=== PATIENT | male | born 1960 | race Caucasian/White ===

== ENCOUNTER 2024-07-24 08:34 | Emergency (ER) | payer OTHER, SELFPAY ==
[2024-07-24 08:36] VITALS: BP 130/87
--- NOTE | 2024-07-24 09:20 | ED.GENMED ---
History of Present Illness
General
Chief Complaint: Abdominal Symptoms
Time Seen by Provider: 07/24/24 09:20
History of Present Illness
History of Present Illness:
TIME OF INITIAL ENCOUNTER: 9:25 AM
HPI: The patient presents with about 6 weeks of diarrhea. However more recently has been having left-sided pain/he also some pain in the left side of the low back. His primary placed him on Keflex and Flagyl. His diarrhea has persisted. He has
not had any stool testing. Most recently he has noted a small amount of bright red blood on top of stool.
EXAM:
GENERAL: Well appearing in no distress, elevated BMI
HEENT: Moist oral mucosa
CARDIOVASCULAR: No murmurs, normal heart rate, regular rhythm, No chest wall tenderness
PULMONARY: No respiratory distress, breath sounds are clear and equal
ABDOMEN: Soft with no peritoneal signs, mild left lower quadrant tenderness
NEUROLOGIC: Excellent strength all extremities, no coordination deficits, prominent stutter
PSYCHIATRIC: Appropriate mental status, normal insight and judgement
EXTREMITIES: Nontender, no edema, moves all extremities equally
SKIN: No rash, no lesions
NUMBER AND COMPLEXITY OF PROBLEMS ADDRESSED AT THE ENCOUNTER
� Chronic conditions affecting care: ADHD, anxiety/depression, cholecystectomy
� Acute Exacerbation and/or Progression of Chronic Illness: This is a subacute problem
� Differential Diagnosis includes: C. difficile, colitis, diverticulitis, diverticular disease, medication induced
AMOUNT AND/OR COMPLEXITY OF DATA TO BE REVIEWED AND ANALYZED
� I performed an independent evaluation of and my interpretation is:
EKG:
CT: CT imaging relatively unremarkable
X-rays:
Laboratory Studies: White count 6.9, hemoglobin 14.5, bicarb is slightly low at 20
Other:
� Review of other/old records: Was seen here with right-sided abdominal pain in September of this year and at that time, noncontrast CT was unremarkable relatively
� Clinical information was obtained by an independent historian: None needed but I did speak to the prior to discharge
� Prescriptions/Medications Considered but not given:
� Further testing considered but not performed:
RISK OF COMPLICATIONS AND/OR MORBIDITY OR MORTALITY OF PATIENT MANAGEMENT
� Social determinants of health affecting care: Lives at home
� Discussion with other providers: Radiologist notified me at 12:57 PM indicating that there is no acute bowel pathology other than some diarrhea noted in the cecum
� Escalation of care including admission/observation vs risk of discharge considered: Given ongoing pain will obtain CT imaging. He has been on antibiotics. Diarrhea started even before starting antibiotics. Will also give IV
fluids to ensure that he is well-hydrated. C. difficile testing is negative. He was given a dose of Toradol.
ANY OTHER UPDATES:
1 PM: I reassessed the patient. Bicarb slightly low and was given a liter of IV fluid but overall appears fairly well-hydrated. The patient appears comfortable on reassessment.
Phy Exam
Physical Exam
Physical Exam:
See HPI
Course
Orders/Labs/Results
Orders:
Orders
07/24/24 09:25
0.9% Sodium Chloride 1000 ml [Nss] 1,000 ml IV BOLUS
07/24/24 09:26
CT Abd/pelvis W Iv Cont Urgent
Comment:
Reason For Exam: L pain; diarrhea
07/24/24 09:33
Complete Blood Count/With Diff Urgent
STOOL [C difficile Antigen & Toxins] Urgent
SINA Source: Feces/Stool
Specimen Description:
Date Specimen was Collected: 07/24/24
Time Specimen was Collected: 09:28
Stool Culture Urgent
SINA Source: Feces/Stool
Specimen Description:
Date Specimen was Collected: 07/24/24
Time Specimen was Collected: :
07/24/24 10:49
Ketorolac [Toradol] 15 mg IV NOW STA
07/24/24 11:09
Basic Metabolic Panel Urgent
Lipase Urgent
Abnormal Lab Results
07/24/24 07/24/24
09:33 11:09
RBC 4.68 L 10^6/uL
(4.70-6.10)
Absolute Monos (auto) 0.7 H 10^3/uL
(0.1-0.6)
Monocytes % 9.8 H %
(1.7-9.3)
Chloride 108 H mmol/L
(98-107)
Carbon Dioxide 20 L mmol/L
(22-30)
07/24/24 09:33
07/24/24 11:09
Vital Signs
Initial and Last Documented VS:
Initial Vital Signs
Temp Pulse Resp BP Pulse Ox
36.7 C 55 16 130/87 98
07/24/24 08:36 07/24/24 08:36 07/24/24 08:36 07/24/24 08:36 07/24/24 08:36
Last Documented Vital Signs
Temp Pulse Resp BP Pulse Ox
36.9 C 82 20 133/79 96
07/24/24 09:40 07/24/24 09:40 07/24/24 09:40 07/24/24 09:40 07/24/24 09:40
*Critical Care Note
Total Time (30-74mins, 75-104mins- exclusive of procedures): Not Applicable
ED Attending Note
-
Portions of this chart may have been created with voice recognition software.� Occasional wrong word or��sound alike� substitutions may have occurred due to the inherent limitations of voice recognition software.
Discharge Plan
Departure
Patient Disposition: Home (Routine Discharge)
Date of Disposition: 07/24/24
Time of Disposition: 13:08
Patient with high blood pressure during this ER visit?: Yes
Discharge Problem:
Diarrhea
Instructions: Diarrhea in teens and adults
Prescriptions:
No Action
atorvastatin 40 mg Tablet
40 mg PO DAILY
Theragen Tablet
1 tab PO DAILY
metronidazole 500 mg tablet
500 mg PO TID
omeprazole 40 mg Capsule,Delayed Release(Dr/Ec)
40 mg PO DAILY
dextroamphetamine-amphetamine [Adderall] 30 mg Tablet
30 mg PO BID
cephalexin 500 mg capsule
500 mg PO Q6H
buspirone 10 mg Tablet
10 mg PO DAILY
paroxetine HCl 40 mg Tablet
40 mg PO DAILY
cyclobenzaprine 5 mg Tablet
10 mg PO HS
aripiprazole [Abilify] 5 mg Tablet
5 mg PO DAILY
Referrals:
Christopher Hays DO [Family Provider] -
Kayleigh Morales MD [Active] -
Activity Restrictions/Additional Instructions:
The white blood cell count and hemoglobin levels are normal. Other than a slightly low bicarbonate level, chemistry levels are normal. Kidney function is normal. The CAT scan of the abdomen and pelvis shows no sign of bowel abnormality however it
did show 'liquid in the cecum'. The cecum is a portion of your large bowel and it does show that you have some diarrhea there. You can consider taking [id number] Imodium if your symptoms remain severe. Your prostate was mildly enlarged. I
am also giving you the contact information for a local GI doctor, Dr. Morales. The stool study shows no sign of C. difficile but stool cultures are pending currently -you will be only notified if they are abnormal. I generally would recommend
against continuing antibiotics.
Interventions
Interventions:
*Risk Screen - Suicide Last Done: 07/24/24 08:36
*General Assessment Last Done: 07/24/24 09:40
*Neglect/Abuse Screening Last Done: 07/24/24 08:36
ED- Fall Risk Assessment Last Done: 07/24/24 09:40
*ED COVID-19 Vaccine History Last Done: 07/24/24 09:40
PL-Qsgjeh-Bwlrcrddbd Assessment Last Done: 07/24/24 09:40
Discharge Date and Time
Print Language: CAMEROONIAN
[2024-07-24 09:32] VITALS: BP 133/95
[2024-07-24 09:39] VITALS: BMI 35.3
[2024-07-24 09:40] VITALS: BP 133/79
[2024-07-24 09:57] LABS: % Basophils 0.9 % (0-2); % Eosinophils 1.9 % (0-6); % Immature Granulocytes 0.1 % (0-0.5); % Lymphocytes 44.1 % (20.5-51.1); % Monocytes 9.8 % (1.7-9.3); % Neutrophils 43.2 % (42.2-75.2); Absolute Basophils 0.1 10^3/uL (0-0.2); Absolute Eosinophils 0.1 10^3/uL (0-0.7); Absolute Monocytes 0.7 10^3/uL (0.1-0.6); Hematocrit 43.2 % (39.0-52.0); Hemoglobin 14.5 g/dL (13.0-18.0); Mean Corp Hgb Conc. 33.6 g/dL (33.0-37.0); Mean Corpuscular Volume 92.3 fL (80.0-94.0); Mean Platelet Volume 9.8 fL (7.4-10.4); Nucleated Red Blood Cells % 0 % (-); Platelet Count 194 10^3/uL (130-400); Red Blood Cell Count 4.68 10^6/uL (4.70-6.10); Red Cell Dist. Width 13.8 % (11.5-14.5); White Blood Cell Count 6.9 10^3/uL (4.8-10.8)
[2024-07-24] MEDS: NSS 1000 IV (10:02)
[2024-07-24] MEDS: TORADOL 15 MG IV (11:04)
[2024-07-24 11:47] LABS: Blood Urea Nitrogen 12 mg/dl (9-20); Calcium 9.3 mg/dl (8.4-10.2); Carbon Dioxide 20 mmol/L (22-30); Chloride 108 mmol/L (98-107); Estimated Creatinine Clearance 121 ml/min; Glucose 93 mg/dl (70-99); Lipase 61 U/L (23-300); Sodium 141 mmol/L (135-145); eGFR > 60.00
[2024-07-24 13:38] VITALS: BP 131/65
== END 2024-07-24 13:41 | disposition home or self-care (01) ==
LOC: EMR 08:34
PROVIDERS: EMERGENCY PHYSICIAN Emergency Medicine; FAMILY PHYSICIAN Family Medicine
DX: R19.7 Diarrhea, unspecified (principal); M54.50 Low back pain, unspecified
CPT/HCPCS: 96374; 96361; 99284; 74177; 80048; 83690; 85025; 87045; 87046; 87324; 87427; 87449; Q9967